=== PATIENT | female | born 1930 | race Caucasian/White ===

== ENCOUNTER 2017-12-14 13:28 | Outpatient (CLI) | payer MEDICARE, BC | END 2017-12-14 13:29 | disposition home or self-care (01) | LOC: BICMAMMO 13:28 | PROVIDERS: ATTEND Internal Medicine Rheumatology | DX: M81.0 Age-related osteoporosis without current pathological fracture (principal); M85.80 Other specified disorders of bone density and structure, unspecified site | CPT/HCPCS: 77080 ==

== ENCOUNTER 2017-12-29 14:25 | Outpatient (CLI) | payer MEDICARE, BC | END 2017-12-29 14:26 | disposition home or self-care (01) | LOC: BICRAD 14:25 | PROVIDERS: ATTEND Internal Medicine Rheumatology | DX: M47.817 Spondylosis without myelopathy or radiculopathy, lumbosacral region (principal); M43.16 Spondylolisthesis, lumbar region | CPT/HCPCS: 72100 ==

== ENCOUNTER 2018-03-22 09:02 | Outpatient (CLI) | payer MEDICARE, BC ==
--- NOTE | 2018-03-22 11:04 | MRI ---
LUMBAR SPINE MRI WITHOUT IV CONTRAST: HISTORY: An 88-year-old female with a history of spinal stenosis of the lumbar region, low back pain, and left leg pain. FINDINGS: Multiplanar, multisequence MRI examination of the lumbar spine is performed. There is a very tiny le ss than 1 cm T2 hyperintense, T1 hypointense peripheral circumscribed focus of the left kidney, stati stically a tiny cyst. 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 The conus medul paula is somewhat low-lying extending down to L2-L3. There are generalized disk desiccation changes and ligament and facet hypertrophic changes. There is no significant associated stenosis at T12-L1 o r L1-L2. At L2-L3, there is mild dorsal lateral recess stenosis without significant foraminal stenos is. At L3-L4, there is facet arthrosis with fluid within the facet joints with moderate central canal and lateral recess stenosis. And bilateral foraminal stenosis. At L4-L5, there is mild anterolisthesis with generalized disk bulging, somewhat more prominent centra lly and right paracentral region resulting in severe central canal and lateral recess stenosis and mo derate to severe bilateral foraminal stenosis, worse on the right side. At L5-S1, moderate right foraminal and moderate to severe left foraminal stenosis. No significant ab normal marrow signal. IMPRESSION: Variable severity multilevel canal, lateral recess, and foraminal stenosis most marked at L4-L5. Oth er findings as above. POS: [facility]
== END 2018-03-22 09:03 | disposition home or self-care (01) ==
LOC: MRI 09:02
PROVIDERS: ATTEND Nurse Practitioner Family
DX: M48.062 Spinal stenosis, lumbar region with neurogenic claudication (principal); M99.83 Other biomechanical lesions of lumbar region
CPT/HCPCS: 72148

== ENCOUNTER 2021-11-12 13:13 | Outpatient (CLI) | payer MEDICARE, BC | END 2021-11-12 13:14 | disposition home or self-care (01) | LOC: BICMAMMO 13:13 | PROVIDERS: ATTEND Internal Medicine Rheumatology | DX: M81.0 Age-related osteoporosis without current pathological fracture (principal); M85.851 Other specified disorders of bone density and structure, right thigh; M85.852 Other specified disorders of bone density and structure, left thigh | CPT/HCPCS: 77080 ==